=== PATIENT | female | born 1980 | race Caucasian/White ===

== ENCOUNTER 2018-04-11 13:34 | Emergency (ER) | payer OTHER ==
[2018-04-11] MEDS ORDERED: NS 0.9% 1000 ML* 1,000 ML IV ONE (14:06)
[2018-04-11] MEDS ORDERED: Acetaminophen TAB* 325 MG PO ONE (14:10)
--- NOTE | 2018-04-11 14:24 | ED ---
Headache - HPI Summary HPI Summary: 37 year old female 10 days post- presents for headache, dizziness, lightheadedness, and nausea. She states that she has been having a persistent posterior headache since the delivery. She reports she has had 3 episodes of "squiggly, floaters" in her peripheral vision in the last 10 days that last approximately 5 minutes. The most recent episode was this morning when she also developed the dizziness, lightheadedness, and mild nausea. She had 1 episode of vomiting in triage. She was noted to have an elevated BP at time of delivery that improved with epidural placement. States she has had periods where she has been pain-free. She is unsure whether headache worsens or improves with positioning. Denies speech difficulties, extremity weakness, numbness, tingling , chest pain, shortness or breath, abdominal pain. Reports poor sleep, not eating well. She continues to have small amount of dark red/brown vaginal bleeding but states has been improving every day. Normal, uncomplicated vaginal . . . - History Of Current Complaint Chief Complaint: EDHeadache Stated Complaint: HEADACHE/DIZZINESS/WEAKNESS SINCE 03/31 Time Seen by Provider: 04/11/18 13:45 Hx Obtained From: Patient Onset/Duration: Gradual Onset Initially Headache Was: Moderate Currently Pain Is: Moderate Timing: Constant Location of Headache: Occipital Aggravating Factor: Nothing Allevating Factors: Nothing Associated Signs And Symptoms: Dizziness, Nausea, Vomiting, Visual Changes - Allergies/Home Medications Allergies/Adverse Reactions: Allergies Allergy/AdvReac Type Severity Reaction Status Date / Time No Known Allergies Allergy Verified 03/31/18 04:20 PMH/Surg Hx/FS Hx/Imm Hx Previously Healthy: Yes - Denies significant PMH Infectious Disease History: No Infectious Disease History: Denies: Traveled Outside the [place] in Last 30 Days - Family History Known Family History: Positive: Non-Contributory - Social History Lives: With Family Alcohol Use: None Substance Use Type: Reports: None Smoking Status (MU): Former Smoker Type: Cigarettes Have You Smoked in the Last Year: No Review of Systems Negative: Fever, Chills Positive: Other - Floaters peripheral vision. Negative: Photophobia, Blurred Vision, Diplopia Negative: Sore Throat, Ear Ache, Nasal Discharge Negative: Palpitations, Chest Pain Negative: Shortness Of Breath, Cough Positive: Vomiting, Nausea. Negative: Abdominal Pain, Diarrhea Negative: burning, dysuria, frequency, urgency Positive: Headache, Weakness. Negative: Paresthesia, Numbness, Syncope, Slurred Speech All Other Systems Reviewed And Are Negative: Yes Physical Exam - Summary Physical Exam Summary: GENERAL APPEARANCE: Well developed, well nourished, alert and cooperative, and appears to be in no acute distress. HEAD: Atraumatic. normocephalic. EYES: PERRL, EOM intact. Vision is grossly intact. EARS: External auditory canals and tympanic membranes clear, hearing grossly intact. NOSE: No nasal discharge. THROAT: Oral cavity and pharynx normal. No inflammation, swelling, exudate, or lesions. Teeth and gingiva in good general condition. NECK: Neck supple, non-tender without lymphadenopathy. CARDIAC: Normal S1 and S2. No S3, S4 or murmurs. Rhythm is regular. There is no peripheral edema, cyanosis or pallor. Extremities are warm and well perfused. Capillary refill is less than 2 seconds. LUNGS: Clear to auscultation and percussion without rales, rhonchi, wheezing or diminished breath sounds. ABDOMEN: Positive bowel sounds. Soft, nondistended, nontender. No guarding or rebound. No masses or hepatosplenomegally. MUSKULOSKELETAL: ROM intact to all extremities. Normal muscular development. Normal gait. BACK: Examination of the spine reveals normal gait and posture, no spinal deformity or tenderness, decreased range of motion or muscular spasm. EXTREMITIES: No edema. Peripheral pulses intact. NEUROLOGICAL: CN II-XII intact. Strength and sensation symmetric and intact throughout. Reflexes 2+ throughout. Cerebellar testing normal. SKIN: Skin normal color, texture and turgor with no lesions or eruptions. Triage Information Reviewed: Yes Vital Signs On Initial Exam: Initial Vitals Temp Pulse Resp BP Pulse Ox 98.8 F 101 20 142/95 98 04/11/18 13:39 04/11/18 13:39 04/11/18 13:39 04/11/18 13:39 04/11/18 13:39 Vital Signs Reviewed: Yes Diagnostics - Vital Signs Vital Signs Temp Pulse Resp BP Pulse Ox 04/11/18 13:39 98.8 F 101 20 142/95 98 - Laboratory Result Diagrams: 04/11/18 14:17 04/11/18 14:17 Lab Statement: Any lab studies that have been ordered have been reviewed, and results considered in the medical decision making process. Re-Evaluation - Re-Evaluation First Eval Re-Evaluation Time: 15:20 Change: Unchanged Comment: Patient states YOUNG unchanged from previous. Reports had some dizziness and lightheadedness when she transferred to the wheelchair to use the bathroom. Discussed lab results with patient. Will contact OB for recommendations. Patient verbalizes understanding of POC. Headache Course/Dx - Course Course Of Treatment: 37 year old female 10 days post- presents for headache, dizziness, lightheadedness, and nausea. She states that she has been having a persistent posterior headache since the delivery. She reports she has had 3 episodes of "squiggly, floaters" in her peripheral vision in the last 10 days that last approximately 5 minutes. The most recent episode was this morning when she also developed the dizziness, lightheadedness, and mild nausea. She had 1 episode of vomiting in triage. She was noted to have an elevated BP at time of delivery that improved with epidural placement. States she has had periods where she has been pain-free. She is unsure whether headache worsens or improves with positioning. Denies speech difficulties, extremity weakness, numbness, tingling, chest pain, shortness or breath, abdominal pain. Reports poor sleep, not eating well. She continues to have small amount of dark red/brown vaginal bleeding but states has been improving every day. Normal, uncomplicated vaginal . . . Afebrile. Hypertensive otherwise VSS. Exam unremarkable. No focal neurological deficits. Called and discussed case with Dr. Jennings, OB. He requested neurology consult prior to admission and recommends starting Magnesium Sulfate 4 gm load over 20 minutes then 2 gm/hr drip to treat for possible preecclampsia. Spoke with Dr. Coleman, Neurology, about case. She is recommending MRI, MRA, and MRV studies which have been ordered. - Diagnoses Differential Diagnosis/HQI/PQRI: Migraine, Tension Headache, Other - Preeclampsia, postdural puncture headache Provider Diagnoses: headache - Physician Notifications Discussed Care Of Patient With: Kurt Jennings Time Discussed With Above Provider: 15:35 - Case discussed. Will call back with disposition plan. Discharge - Sign-Out/Discharge Documenting (check all that apply): Sign-Out Patient Signing out patient TO: Scottie Chung - Discharge Plan Condition: Stable Referrals: No Primary Care Phys,NOPCP [Primary Care Provider] - - Billing Disposition and Condition Condition: STABLE
[2018-04-11 14:27] LABS: ABS Basophils 0 10^3/ul (0-0.2); ABS Eosinophils 0.1 10^3/ul (0-0.6); ABS Lymphocytes 0.9 10^3/ul (1.0-4.8); ABS Monocytes 0.2 10^3/ul (0-0.8); ABS Neutrophils 6.2 10^3/ul (1.5-7.7); ABS Nucleated RBC 0 10^3/ul; Eosinophil % 0.7 %; Hematocrit 37 % (35-47); Hemoglobin 12.7 g/dl (12.0-16.0); Lymphocyte % 12.1 %; Mean Corpuscular HGB Conc 35 g/dl (31-36); Mean Corpuscular Hemoglobin 32 pg (27-31); Mean Corpuscular Volume 93 fL (80-97); Mean Platelet Volume 6.6 fL (7.4-10.4); Nucleated Red Blood Cells % 0.1; Platelet Count 263 10^3/ul (150-450); Red Blood Count 3.92 10^6/ul (4.00-5.40); Red Cell Distribution Width 13 % (10.5-15); White Blood Count 7.4 10^3/ul (3.5-10.8)
[2018-04-11 14:59] LABS: Albumin 3.6 g/dL (3.2-5.2); Albumin/Globulin Ratio 1.2 (1-3); BUN/Creatinine Ratio 18.1 (8-20); Calcium 8.5 mg/dL (8.6-10.3); EGFR Non-African American 90.2 (>60); Total Bilirubin 0.3 mg/dL (0.2-1.0); Total Protein 6.6 g/dL (6.4-8.9)
[2018-04-11 15:22] LABS: Urine Appearance Clear; Urine Bacteria Absent (Absent); Urine Bilirubin Negative (Negative); Urine Blood 3+ (Negative); Urine Color Yellow; Urine Glucose Negative (Negative); Urine Ketones Negative (Negative); Urine Nitrite Negative (Negative); Urine Protein Negative (Negative); Urine Red Blood Cell 2+(6-10/hpf) (Absent); Urine Specific Gravity 1.009 (1.010-1.030); Urine Urobilinogen Negative (Negative); Urine White Blood Cell Trace(0-5/hpf) (Absent)
[2018-04-11] MEDS ORDERED: Magnesium Sulfate IV* 0.5 GM/ML 2 ML VIAL (1 GM) IVPB ONE (16:25)
[2018-04-11] MEDS ORDERED: Magnesium Sulfate 4 GM IV IVPB ONE (17:00)
[2018-04-11] MEDS ORDERED: Magnesium Sulfate OB PREMIX* 40 GM/1,000 ML BAG IVPB SCH (17:00)
[2018-04-11] MEDS ORDERED: NS 0.9% 1000 ML* 1,000 ML IV SCH ×2 (17:15→22:49)
[2018-04-11] MEDS: Magnesium Sulf 4 GM/100 ML IV* 4,000 MG/100 ML BAG IVPB SCH ×2 (17:47→23:15)
--- NOTE | 2018-04-11 22:39 | PN ---
Progress Note - Progress Note Date of Service: 04/11/18 Note: Patient signed out to me by Mark Mar LIN pending results of brain MRI, brain MRA, brain MRV. Patient post 10 days, has been having persistent headache , vision changes (geometric shapes in bilat peripheral vision) since March 31 when she gave . New onset balance deficit, difficulty finding words, dizziness starting today at 10:30am.. Denies focal weakness, facial droop. Mr. Manuel had consulted [facility] neurology Dr. Johns and [facility] Dr. Jennings. Dr. Jennings for [employer]TER CLERK was willing to admit for possible pre-eclampsia if patient could be cleared by neurology. 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 [facility] neurology Dr. Johns arranged with neurology Dr. Princess Osorio [facility] for transfer. Patient being transferred in stable condition to [facility] by ground ED to ED. 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
[2018-04-11] MEDS ORDERED: Aspirin 81 mg CHEW TAB* 81 MG TAB.CHEW ONE (23:07)
[2018-04-11] MEDS ORDERED: Aspirin 81 mg CHEW TAB* 81 MG TAB.CHEW PO ONE (23:13)
[2018-04-11] MEDS ORDERED: Aspirin TAB* 325 MG PO ONE (23:13)
[2018-04-12 01:11] VITALS: BP 140/93
--- NOTE | 2018-04-12 05:03 | CONS ---
ADDENDUM NOW INCLUDED ON THIS REPORT CONSULTATION NOTE: DATE OF CONSULT: 04/11/18 - EMERGENCY DEPT REASON FOR CONSULT: headache. HISTORY OF PRESENT ILLNESS: Michelle Albrecht is a 37-year-old woman with a history of vaginal delivery on 03/31/18 with epidural and reported blood pressure to 185/101 that day, who now presents with progressive occipital headache with bilateral visual phenomenon that originally started right after delivery. She indicates that she after delivery developed occipital headache with visual phenomenon in the periphery bilaterally, which is described as geometric floating objects. She reports that she took Midol twice in the hospital. The visual phenomenon lasted for only 2 minutes in hospital. After discharge, she has had transient headache in the occipital region. She has had 2 other episodes of visual changes, one for 5 minutes in the peds office, the other for less than 2 minutes. Today, she developed a progressive headache in the occipital area, and at approximately 10: 30 AM felt lightheaded, weak in the knees, and had difficulty speaking. When she spoke, her could understand her, but she looked nauseous and uncomfortable. She did hold on to hadley to walk, and in the emergency room, she had nausea and vomiting. There has been some throbbing component to her headache. Her blood pressure has been elevated since she has been here with systolics as high as 160 and diastolics as high as 117. There has been some improvement in the last hour. She has received magnesium sulfate, after ER provider discussion with BUS DRIVER for differential of post pre-eclampsia. There was no protein in her urine. Neurology was consulted given the associated symptoms with her headache. Need for MRI/MRA/MRV were discussed at time of consult request. Michelle Albrecht has no history of migraines. She has had a previous trial without complication. MEDICATIONS: She is on vitamin 1 tablet p.o. daily and ibuprofen 600 mg p.o. q.4 hours p.r.n. ALLERGIES: She has no known drug allergies. SOCIAL HISTORY: Her is at bedside. She is a former smoker. PHYSICAL EXAMINATION: On examination, her most recent blood pressure was 136/94 , pulse was 72 and regular, respiratory rate was 18, saturation was 96%, and temperature was 98.8 degrees Fahrenheit. She had a regular cardiac rhythm. Lungs are clear to auscultation. There was no evidence of carotid bruits. There was no petechiae. No peripheral edema. Pulses were intact in her feet. She is awake, alert, oriented, had normal language function, adequate fund of knowledge. Her pupils are equal and responsive to light. Her fundi were flat. She had full extraocular movements with no nystagmus. Full valdiiva to confrontation. There was equal facial expression, sensation and hearing. Palate was upgoing. Tongue was midline. Sternocleidomastoid and trapezius were 5/5 in strength. There was normal bulk and tone. No pronator drift. Full strength was noted in the upper and lower extremities with normal finger-to- nose and bibw-je-qkfr movement. She denied any asymmetry to pinprick, cold, or light touch. Reflexes were 2+ and symmetric in the upper and lower extremities. Toes were flexor response. Gait was not tested, as she was being taken to MRI. She had normal [id number]-dx-[id number] and agod-ih-opxs movement. DIAGNOSTIC STUDIES/LAB DATA: Data includes CBC with normal white count. Hemoglobin and hematocrit were within normal limits. Platelet was normal. Her MCH was slightly elevated at 32, and has been noted previously to be elevated. Her metabolic panel showed calcium low at 8.5. Urinalysis showed 3+ blood, trace esterase, 2 red blood cells, but negative protein. IMPRESSION: A 37-year-old woman with history of vaginal delivery on 03/31/18 with epidural, reported to have elevated blood pressures of 185/101 the day of delivery, now presenting with progressive occipital headaches with bilateral intermittent visual phenomenon that originally started right after delivery, now with many other associated symptoms as described above. She is currently getting an MRI/MRA of the brain and neck and MRV of the brain and evaluation of venous thrombosis, dissection, stroke, aneurysm, and possible edema in the setting of preeclampsia. preeclampsia is in the differential. She does not have protein in her urine. Her blood pressure, however, is elevated. She is receiving magnesium sulfate, may need further treatment of blood pressure. She did give some positional dependent component to her headache and certainly post epidural headache is on differential diagnosis; she has received 1 L of fluid while she is here, and ongoing normal saline is ordered at 75 mL an hour. Hydration would be appropriate with pain control if this is epidural headache , and accordingly she may need Anesthesia to provide blood patch. Migraine is the differential diagnosis of exclusion. We will await results of the films to decide on disposition. Admission is expected for either treatment with potential preeclampsia, possible epidural headache treatment and pain treatment, versus admission for underlying neurologic vascular pathology. TIME SPENT: Over 90 minutes was spent in care today. Further care is expected once results are obtained. ADDENDUM: MRI of the brain reveled bilateral, right greater than left, cerebellar strokes within my opinion a very small vermal lesion in direct film review. This occurs in the setting of findings that appear consistent with a thrombosed right vertebral artery. There was no evidence of venous thrombosis. These films were reviewed directly, discussed with radiology, and ED staff. In addition, time was spent at bedtime discussing with the patient, as well as a separate phone call to the who had gone home to be with their other child. Given the bilateral distribution of the strokes and the progression over time, there is concern for further events. It was suggested that she be transferred to higher level of care. Aspirin was provided at bedside. Normal saline was restarted at 100 mL an hour. I discussed the case with Dr. Chris Sánchez at [facility] who has kindly accepted the patient in transfer. We discussed the potential of using verapamil for differential diagnosis of vasospasm, and he would prefer for me to hold off until she is at [facility]. Her most recent blood pressure was 151/106. I have asked her to lie flat to allow for perfusion. The patient and the are aware of the critical situation and the potential for progression and the need for transfer to higher level of care in this extremely complex case. [facility] was chosen for its center of excellence and ability to review images and case, and start helping in care at this time. Differential diagnoses was discussed of potential dissection with subsequent thrombosis and thromboembolism causing stroke as a part of the differential diagnoses given the timing of her symptoms. Further stroke workup will be needed to determine etiology and treatment. Another hour was spent in direct patient care and coordinating care after original consult noted above. cc: Chris Sánchez MD, [facility] Vascular Neurology [id number]/[facility] #: [id number] A- [id number]/[facility] #: [id number] - 04/11/18 2317 MIGUEL
--- NOTE | 2018-04-12 05:03 | CONS ---
CONSULTATION REPORT: DATE OF CONSULTATION: ADDENDUM: MRI of the brain reveled bilateral, right greater than left cerebellar strokes with in my opinion a very small lesion in direct review. This occurs in the setting of findings that appears to be a thrombosed right vertebral artery. There was no evidence of venous thrombosis. These films were reviewed directly, discussed with radiology, and ED staff. In addition, time was spent at bedtime discussing with the patient as well as a separate phone call to the who had gone home to be with their other child. Given the bilateral distribution of the strokes and the progression over time concern would be further events. It was suggested that she be transferred to higher level of care. Aspirin was provided at bedside. Normal saline was restarted at 100 mL an hour. I discussed the case with Dr. Chris Sánchez at [facility] who has kindly accepted the patient in transfer. We discussed the potential of using verapamil for differential diagnosis of vasospasm and he would prefer for me to hold off until she is at [facility]. Her most recent blood pressure was 151/106. I have asked her to lie flat to allow for perfusion. The patient and the are aware of the critical situation and the potential for progression and the need for transfer to higher level of care in this extremely complex case. Differential diagnoses was discussed of potential dissection with subsequent thrombosis and thromboembolism causing stroke as a part of the differential diagnoses given the timing of her symptoms. Further stroke workup will be needed to determine full etiology and treatment. Another hour was spent in direct patient care and coordinating care. [id number]/[facility] #: [id number] MIGUEL
== END 2018-04-12 01:13 | disposition short-term general hospital (02) ==
LOC: ED 13:34
DX: O99.43 Diseases of the circulatory system complicating the puerperium (principal); Z87.891 Personal history of nicotine dependence; I63.011 Cerebral infarction due to thrombosis of right vertebral artery; G46.4 Cerebellar stroke syndrome
CPT/HCPCS: 36415; 70544; 70547; 70551; 80053; 81003; 81015; 85025; 87086; 96361; 96374; 99284; A9270-GY; J3475